=== PATIENT | female | born 1990 | race Caucasian/White ===

== ENCOUNTER 2018-04-14 22:20 | Emergency (ER) | payer OTHER ==
[~2018-04-14] VITALS: Ht 154.9 cm; Wt 49.9 kg
[2018-04-14] MEDS ORDERED: SODIUM CHLORIDE 0.9% 1000ML 1,000 ML IV STA (22:35)
[2018-04-14] MEDS ORDERED: ONDANSETRON HCL INJ 2 MG/ML VIAL IV STA (22:39)
[2018-04-14] MEDS ORDERED: KETOROLAC TROMETHAMINE 30 MG/ML VIAL IV STA (22:39)
[2018-04-14] MEDS ORDERED: MORPHINE SULFATE 2 MG/ML SYR IV STA (22:39)
[2018-04-14 22:54] LABS: BASOPHILS # (AUTO) 0.1 (0.0-0.1); BASOPHILS % 0.6 % (0.0-1.0); EOSINOPHILS # (AUTO) 0.1 (0.0-0.4); EOSINOPHILS % 1.3 % (0.0-6.0); HEMATOCRIT 40.1 % (34.2-44.1); HEMOGLOBIN 13.6 g/dL (12.0-16.0); LYMPHOCYTES # (AUTO) 4.3 (1.0-3.2); LYMPHOCYTES % 47.8 % (18.0-39.1); MEAN CORPUSCULAR HEMOGLOBIN 28.7 pg (28-32); MEAN CORPUSCULAR HGB CONC 33.9 g/dL (31-35); MEAN CORPUSCULAR VOLUME 84.6 fL (81-99); MONOCYTES # (AUTO) 0.8 (0.2-0.8); MONOCYTES % 8.5 % (4.4-11.3); NEUTROPHILS # (AUTO) 3.7 (2.1-6.9); NEUTROPHILS % 41.6 % (38.7-80.0); PLATELET COUNT 191 x10e3/uL (140-360); RED BLOOD COUNT 4.74 x10e6/uL (3.6-5.1); RED CELL DISTRIBUTION WIDTH 14.9 % (11.7-14.4)
[2018-04-14 22:57] LABS: BILIRUBIN,URINE NEGATIVE (NEGATIVE); CLARITY,URINE CLEAR (CLEAR); COLOR,URINE YELLOW (YELLOW); KETONES,URINE TRACE (NEGATIVE); LEUKOCYTE ESTERASE ,URINE NEGATIVE (NEGATIVE); NITRITE,URINE NEGATIVE (NEGATIVE); PREGNANCY TEST, URINE NEGATIVE (NEGATIVE); PROTEIN,URINE DIPSTICK NEGATIVE (NEGATIVE); URINE UROBILINOGEN 0.2 mg/dL (0.2 - 1)
[2018-04-14 23:04] LABS: BACTERIA,URINE FEW /HPF; EPITHELIAL CELLS,URINE FEW /LPF; MUCUS,URINE MODERATE (RARE); RBC,URINE >50 /HPF (0-5)
[2018-04-14 23:26] LABS: ALANINE AMINOTRANSFERASE 16 IU/L (0-55); ALBUMIN 4.6 g/dL (3.5-5.0); ALBUMIN/GLOBULIN RATIO 1.2 (0.8-2.0); ALKALINE PHOSPHATASE 87 IU/L (40-150); ANION GAP 18.1 mmol/L (8-16); BLOOD UREA NITROGEN 11 mg/dL (7-26); BUN/CREATININE RATIO 15 (6-25); CALCIUM 9.9 mg/dL (8.4-10.2); CARBON DIOXIDE 19 mmol/L (22-29); CHLORIDE 104 mmol/L (98-107); CREATININE, SERUM 0.73 mg/dL (0.57-1.11); EST GLOMERULAR FILTRATION RATE > 60 ML/MIN (60-); GLUCOSE 99 mg/dL (74-118); MAGNESIUM 1.5 MG/DL (1.3-2.1); POTASSIUM 3.1 mmol/L (3.5-5.1); SODIUM 138 mmol/L (136-145)
[2018-04-14] MEDS ORDERED: HYDROMORPHONE 1MG/1ML INJ IV STA (23:32)
[2018-04-15] MEDS ORDERED: CEFTRIAXONE SOD 1 GM VIAL IV SCH
--- NOTE | 2018-04-15 00:22 | Diagnostic Imaging Report ---
EXAM: CT ABDOMEN/PELVIS WO DATE: 04/14/2018 10:35 PM INDICATION: Left flank pain, stone COMPARISON: None TECHNIQUE: The abdomen and pelvis were scanned using a multidetector helical scanner. Coronal and sagittal reformations were obtained. Routine protocol performed. IV Contrast: 0 ml Isovue 300/370 FINDINGS: Lack of IV contrast decreases sensitivity in evaluating abdominal and pelvic organs. LOWER THORAX: Nonspecific 1-2 mm and 4 mm left lower lobe subpleural nodules. LIVER/BILIARY: No masses. No ductal dilatation. GALLBLADDER: Unremarkable SPLEEN: Unremarkable PANCREAS: Unremarkable ADRENALS: No nodules KIDNEYS: Mild left hydronephrosis related to a 5.5 mm proximal left ureteral calculus. Multiple nonobstructing stones throughout the left kidney measuring 1 to 4 mm, largest inferomedially. Multiple nonobstructing right renal calculi measuring 1 to 3 mm, largest inferiorly. GI TRACT: No wall thickening or evidence of obstruction. No evidence of appendicitis. VESSELS: Not well assessed PERITONEUM/RETROPERITONEUM: Trace pelvic free fluid LYMPH NODES: Not well assessed REPRODUCTIVE ORGANS/BLADDER: Grossly unremarkable with dominant right ovarian follicle/cyst. Decompressed bladder. BONES: No suspicious bone lesions. IMPRESSION: Mild left hydronephrosis related to a 5.5 mm proximal left ureteral calculus. Multiple nonobstructing renal calculi. Signed by: Dr Jailene Sargent MD on 04/15/2018 12:18 AM
[2018-04-15 01:04] VITALS: BP 94/54
== END 2018-04-15 01:43 | disposition home or self-care (01) ==
LOC: ER 22:20
DX: R10.32 Left lower quadrant pain (principal); R11.2 Nausea with vomiting, unspecified; M54.5 Low back pain; N20.1 Calculus of ureter
CPT/HCPCS: 36415; 74176; 80053; 81001; 81025; 83735; 85025; 87086; 99284; J1885; J2270; J2405; J7030